=== PATIENT | male | born 1955 | race Caucasian/White ===

== ENCOUNTER 2017-04-07 02:01 | Emergency (ER) | payer OTHER ==
[~2017-04-07] VITALS: Ht 182.9 cm; Wt 80.0 kg
[~2017-04-07 02:01] MED LIST: ASPI-621 PO; NICO-486 TD; PHEN100C PO; PRAS10TA4 PO; PRAV20TA PO
[2017-04-07 02:02] VITALS: BP 124/81
[2017-04-07] MEDS ORDERED: DIPH,PERTUSS(ACELL),TET VAC/PF 0.5 ML IM-VACC ONE ×2 (02:29→02:30)
[2017-04-07] MEDS ORDERED: IBUPROFEN 200 MG TABLET ONE (03:20)
[2017-04-07] MEDS ORDERED: IBUPROFEN 200 MG TABLET PO ONE (03:30)
== END 2017-04-07 03:29 | disposition home or self-care (01) ==
LOC: ED 03:10
DX: S91.331A Puncture wound without foreign body, right foot, initial encounter (principal); E78.5 Hyperlipidemia, unspecified; I25.10 Atherosclerotic heart disease of native coronary artery without angina pectoris; Z95.5 Presence of coronary angioplasty implant and graft; W45.0XXA Nail entering through skin, initial encounter; Y93.89 Activity, other specified; Y92.89 Other specified places as the place of occurrence of the external cause; Y99.8 Other external cause status
CPT/HCPCS: 90471; 90715

== ENCOUNTER 2017-05-27 22:07 | Emergency (ER) | payer OTHER ==
[~2017-05-27] VITALS: Ht 182.9 cm; Wt 78.2 kg
[2017-05-27 22:18] VITALS: BP 114/78
== END 2017-05-27 22:54 | disposition home or self-care (01) ==
LOC: ED 22:46
DX: M79.671 Pain in right foot (principal); Z48.01 Encounter for change or removal of surgical wound dressing; F17.200 Nicotine dependence, unspecified, uncomplicated; E78.5 Hyperlipidemia, unspecified
CPT/HCPCS: 99282

== ENCOUNTER 2018-03-19 13:02 | Emergency (ER) | payer SELFPAY ==
[~2018-03-19] VITALS: Ht 182.9 cm; Wt 78.7 kg
[2018-03-19 13:08] VITALS: BP 117/73
[2018-03-19] MEDS ORDERED: IBUPROFEN 200 MG TABLET ONE (13:55)
[2018-03-19] MEDS ORDERED: IBUPROFEN 200 MG TABLET PO ONE (14:00)
== END 2018-03-19 15:01 | disposition home or self-care (01) ==
LOC: ED 13:30
DX: S86.112A Strain of other muscle(s) and tendon(s) of posterior muscle group at lower leg level, left leg, initial encounter (principal); I25.2 Old myocardial infarction; I25.10 Atherosclerotic heart disease of native coronary artery without angina pectoris; E78.5 Hyperlipidemia, unspecified; X58.XXXA Exposure to other specified factors, initial encounter; Y93.89 Activity, other specified; Y92.89 Other specified places as the place of occurrence of the external cause; Y99.8 Other external cause status
CPT/HCPCS: 99284

== ENCOUNTER 2018-04-23 12:51 | Inpatient (IN) | payer MEDICARE, OTHER ==
[~2018-04-23] VITALS: Ht 180.3 cm; Wt 79.6 kg
[2018-04-23 13:35] LABS: BASOPHILS # (AUTO) 0.04 x10^3/uL (0-0.1); BASOPHILS % (AUTO) 1 % (0-1); EOSINOPHILS # (AUTO) 0.14 x10^3/uL (0-0.4); EOSINOPHILS % (AUTO) 2 % (1-7); LYMPHOCYTES # (AUTO) 2.71 x10^3/uL (1-3.4); LYMPHOCYTES % (AUTO) 44 % (22-44); MD NO; MEAN CORPUSCULAR HEMOGLOBIN 34.7 pg (27.5-34.5); MEAN CORPUSCULAR HGB CONC 34.1 g/dL (33.2-36.2); MEAN CORPUSCULAR VOLUME 101.7 fL (81-97); MEAN PLATELET VOLUME 7.8 fL (7.4-10.4); MONOCYTES # (AUTO) 0.26 x10^3/uL (0.2-0.8); MONOCYTES % (AUTO) 4 % (2-9); NEUTROPHILS # (AUTO) 2.99 x10^3/uL (1.8-6.8); NEUTROPHILS % (AUTO) 49 % (42-75); PLATELET COUNT 251 x10^3/uL (130-400); RED BLOOD COUNT 4.01 x10^6/uL (4.38-5.82); RED CELL DISTRIBUTION WIDTH 13.2 % (9.4-14.8)
[2018-04-23 13:48] LABS: ALANINE AMINOTRANSFERASE 16 U/L (12-78); ALBUMIN 3.3 g/dL (3.4-5.0); ANION GAP 8 mmol/L (5-15); CALCIUM 8.2 mg/dL (8.5-10.1); CHLORIDE 110 mmol/L (98-107); CREATININE 0.75 mg/dL (0.7-1.3)
[2018-04-23 13:50] LABS: ALKALINE PHOSPHATASE 140 U/L (45-117); BILIRUBIN,TOTAL 0.3 mg/dL (0.2-1.0); TOTAL PROTEIN 6.8 g/dL (6.4-8.2)
[2018-04-23 14:19] LABS: INTERNATIONAL NORMALIZED RATIO 1.01 (0.93-1.1); PROTHROMBIN TIME 10.4 Seconds (9.6-11.5)
[2018-04-23] MEDS ORDERED: HEPARIN 5,000 UNITS/ML, 1ML IV ONE (17:00)
[2018-04-23] MEDS ORDERED: HEPARIN 25,000 UNITS/500ML PMX 500 ML IV PRN (17:00)
[2018-04-23] MEDS ORDERED: HEPARIN 5,000 UNITS/ML, 1ML IV PRN (17:00)
[2018-04-23] MEDS ORDERED: ONDANSETRON 2MG/ML, 2ML IVPush PRN (17:30)
[2018-04-23] MEDS ORDERED: BISACODYL 10 MG SUPP PR PRN (17:30)
[2018-04-23] MEDS ORDERED: MORPHINE SULFATE 4 MG/ML, 1ML IVPush PRN (17:30)
[2018-04-23] MEDS ORDERED: DOCUSATE 100 MG CAPSULE PO PRN (17:30)
[2018-04-23] MEDS ORDERED: POLYETHYLENE GLYCOL 17 GM PACKET PO PRN (17:30)
[2018-04-23] MEDS ORDERED: ENALAPRILAT 1.25 MG/ML, 2ML IVPush PRN (17:30)
[2018-04-23] MEDS: NS + 20MEQ KCL 1,000 ML IV SCH (20:51)
[2018-04-23 22:38] VITALS: BP 144/79
[2018-04-24 00:34] VITALS: BP 138/76
[2018-04-24 05:38] LABS: CHLORIDE 112 mmol/L (98-107)
[2018-04-24 05:42] LABS: BASOPHILS # (AUTO) 0.04 x10^3/uL (0-0.1); BASOPHILS % (AUTO) 1 % (0-1); EOSINOPHILS # (AUTO) 0.26 x10^3/uL (0-0.4); EOSINOPHILS % (AUTO) 4 % (1-7); LYMPHOCYTES # (AUTO) 3.43 x10^3/uL (1-3.4); LYMPHOCYTES % (AUTO) 52 % (22-44); MD NO; MEAN CORPUSCULAR HEMOGLOBIN 34.8 pg (27.5-34.5); MEAN CORPUSCULAR HGB CONC 34.3 g/dL (33.2-36.2); MEAN CORPUSCULAR VOLUME 101.4 fL (81-97); MEAN PLATELET VOLUME 8.6 fL (7.4-10.4); MONOCYTES # (AUTO) 0.35 x10^3/uL (0.2-0.8); MONOCYTES % (AUTO) 5 % (2-9); NEUTROPHILS # (AUTO) 2.54 x10^3/uL (1.8-6.8); NEUTROPHILS % (AUTO) 38 % (42-75); PLATELET COUNT 223 x10^3/uL (130-400); RED BLOOD COUNT 3.82 x10^6/uL (4.38-5.82); RED CELL DISTRIBUTION WIDTH 13.3 % (9.4-14.8)
[2018-04-24 06:04] LABS: ALANINE AMINOTRANSFERASE 15 U/L (12-78); ALBUMIN 3.1 g/dL (3.4-5.0); ALKALINE PHOSPHATASE 125 U/L (45-117); ANION GAP 9 mmol/L (5-15); BILIRUBIN,TOTAL 0.2 mg/dL (0.2-1.0); CALCIUM 8.3 mg/dL (8.5-10.1); CREATININE 0.61 mg/dL (0.7-1.3); TOTAL PROTEIN 6.3 g/dL (6.4-8.2)
[2018-04-24 07:08] VITALS: BP 108/72
[2018-04-24] MEDS: PHENYTOIN 100 MG CAPSULE PO SCH (09:00)
[2018-04-24] MEDS ORDERED: LIDOCAINE-MPF 1%, 5ML ONE (09:38)
[2018-04-24] MEDS ORDERED: FENTANYL PF 100 MCG/2ML ONE (09:39)
[2018-04-24] MEDS ORDERED: FLUMAZENIL 0.1 MG/1 ML, 5ML ONE (09:39)
[2018-04-24] MEDS ORDERED: MIDAZOLAM 1 MG/ML, 5ML ONE (09:39)
[2018-04-24] MEDS ORDERED: HEPARIN 1,000 UNITS/ML, 10ML ONE (09:40)
[2018-04-24] MEDS ORDERED: NALOXONE 1 MG/ML, 2ML ONE (09:40)
[2018-04-24] MEDS ORDERED: PROTAMINE SULFATE 10 MG/ML, 25ML ONE (09:40)
[2018-04-24] MEDS ORDERED: NITROGLYCERIN 5 MG/ML, 10ML ONE (09:40)
[2018-04-24] MEDS: NS + 20MEQ KCL 1,000 ML IV SCH ×2 (10:00→23:10)
[2018-04-24] MEDS ORDERED: VISIPAQUE 270 MG/ML, 150ML BOTTLE ONE (11:58)
[2018-04-24] MEDS ORDERED: CLOPIDOGREL 300 MG TABLET PO ONE (12:00)
[2018-04-24 12:35] VITALS: BP 127/81
[2018-04-24] MEDS: ASPIRIN 81 MG TABLET EC PO SCH (12:43)
[2018-04-24] MEDS: SODIUM CHLORIDE 0.9% 1,000 ML IV SCH (12:43)
[2018-04-24] MEDS: NICOTINE 21 MG/24 HR PATCH.TD24 TD SCH (17:42)
[2018-04-24 21:13] VITALS: BP 118/79
[2018-04-25] MEDS: ACETAMINOPHEN 325 MG TABLET PO PRN (00:44)
[2018-04-25] MEDS: SODIUM CHLORIDE 0.9% 1,000 ML IV SCH ×2 (01:07→14:27)
[2018-04-25 02:38] VITALS: BP 117/80
[2018-04-25 05:24] LABS: BASOPHILS # (AUTO) 0.03 x10^3/uL (0-0.1); BASOPHILS % (AUTO) 0 % (0-1); EOSINOPHILS # (AUTO) 0.17 x10^3/uL (0-0.4); EOSINOPHILS % (AUTO) 2 % (1-7); LYMPHOCYTES # (AUTO) 3.12 x10^3/uL (1-3.4); LYMPHOCYTES % (AUTO) 38 % (22-44); MD NO; MEAN CORPUSCULAR HEMOGLOBIN 34.4 pg (27.5-34.5); MEAN CORPUSCULAR HGB CONC 33.8 g/dL (33.2-36.2); MEAN CORPUSCULAR VOLUME 101.8 fL (81-97); MEAN PLATELET VOLUME 8.2 fL (7.4-10.4); MONOCYTES # (AUTO) 0.49 x10^3/uL (0.2-0.8); MONOCYTES % (AUTO) 6 % (2-9); NEUTROPHILS # (AUTO) 4.46 x10^3/uL (1.8-6.8); NEUTROPHILS % (AUTO) 54 % (42-75); PLATELET COUNT 213 x10^3/uL (130-400); RED BLOOD COUNT 3.72 x10^6/uL (4.38-5.82); RED CELL DISTRIBUTION WIDTH 13.4 % (9.4-14.8)
[2018-04-25 05:33] LABS: ANION GAP 5 mmol/L (5-15); CALCIUM 8.2 mg/dL (8.5-10.1); CHLORIDE 113 mmol/L (98-107); CREATININE 0.76 mg/dL (0.7-1.3)
[2018-04-25] MEDS: ASPIRIN 81 MG TABLET EC PO SCH (05:34)
[2018-04-25 07:34] VITALS: BP 120/79
[2018-04-25] MEDS: NICOTINE 21 MG/24 HR PATCH.TD24 TD SCH (08:42)
[2018-04-25] MEDS: PHENYTOIN 100 MG CAPSULE PO SCH (08:42)
[2018-04-25] MEDS: CLOPIDOGREL 75 MG TABLET PO SCH (08:43)
[2018-04-25] MEDS ORDERED: CLOP75TA PO (10:31)
[2018-04-25] MEDS: NS + 20MEQ KCL 1,000 ML IV SCH (12:40)
[2018-04-25 13:30] VITALS: BP 110/69
[2018-04-25 19:01] VITALS: BP 121/70
[2018-04-26] MEDS: NS + 20MEQ KCL 1,000 ML IV SCH ×2 (01:19→16:02)
[2018-04-26 01:20] VITALS: BP 109/71
[2018-04-26] MEDS: SODIUM CHLORIDE 0.9% 1,000 ML IV SCH ×2 (03:39→15:51)
[2018-04-26] MEDS: ASPIRIN 81 MG TABLET EC PO SCH (05:55)
[2018-04-26 06:53] VITALS: BP 124/84
[2018-04-26] MEDS ORDERED: LIDOCAINE-MPF 1%, 5ML ONE (07:53)
[2018-04-26 08:22] LABS: BASOPHILS # (AUTO) 0.04 x10^3/uL (0-0.1); BASOPHILS % (AUTO) 1 % (0-1); EOSINOPHILS # (AUTO) 0.23 x10^3/uL (0-0.4); EOSINOPHILS % (AUTO) 3 % (1-7); LYMPHOCYTES # (AUTO) 2.42 x10^3/uL (1-3.4); LYMPHOCYTES % (AUTO) 31 % (22-44); MD NO; MEAN CORPUSCULAR HEMOGLOBIN 33.8 pg (27.5-34.5); MEAN CORPUSCULAR HGB CONC 33.9 g/dL (33.2-36.2); MEAN CORPUSCULAR VOLUME 99.6 fL (81-97); MEAN PLATELET VOLUME 7.5 fL (7.4-10.4); MONOCYTES # (AUTO) 0.41 x10^3/uL (0.2-0.8); MONOCYTES % (AUTO) 5 % (2-9); NEUTROPHILS # (AUTO) 4.65 x10^3/uL (1.8-6.8); NEUTROPHILS % (AUTO) 60 % (42-75); PLATELET COUNT 219 x10^3/uL (130-400); RED CELL DISTRIBUTION WIDTH 13.4 % (9.4-14.8)
[2018-04-26 08:40] LABS: ANION GAP 5 mmol/L (5-15); CALCIUM 8.6 mg/dL (8.5-10.1); CHLORIDE 111 mmol/L (98-107); CREATININE 0.71 mg/dL (0.7-1.3)
[2018-04-26] MEDS ORDERED: FLUMAZENIL 0.1 MG/1 ML, 5ML ONE (10:23)
[2018-04-26] MEDS ORDERED: NITROGLYCERIN 5 MG/ML, 10ML ONE (10:23)
[2018-04-26] MEDS ORDERED: MIDAZOLAM 1 MG/ML, 5ML ONE (10:23)
[2018-04-26] MEDS ORDERED: FENTANYL PF 100 MCG/2ML ONE ×2 (10:23)
[2018-04-26] MEDS ORDERED: NALOXONE 1 MG/ML, 2ML ONE (10:24)
[2018-04-26] MEDS ORDERED: PROTAMINE SULFATE 10 MG/ML, 25ML ONE (10:24)
[2018-04-26] MEDS ORDERED: HEPARIN 1,000 UNITS/ML, 10ML ONE (10:24)
[2018-04-26] MEDS: NICOTINE 21 MG/24 HR PATCH.TD24 TD SCH (10:47)
[2018-04-26] MEDS: PHENYTOIN 100 MG CAPSULE PO SCH (10:47)
[2018-04-26] MEDS: CLOPIDOGREL 75 MG TABLET PO SCH (10:47)
[2018-04-26 13:19] VITALS: BP 114/67
[2018-04-26 18:45] VITALS: BP 113/71
[2018-04-27 02:03] VITALS: BP 122/79
[2018-04-27] MEDS: NS + 20MEQ KCL 1,000 ML IV SCH ×2 (05:06→21:28)
[2018-04-27] MEDS: ASPIRIN 81 MG TABLET EC PO SCH (05:06)
[2018-04-27 05:13] LABS: BASOPHILS # (AUTO) 0.04 x10^3/uL (0-0.1); BASOPHILS % (AUTO) 0 % (0-1); EOSINOPHILS # (AUTO) 0.25 x10^3/uL (0-0.4); EOSINOPHILS % (AUTO) 3 % (1-7); LYMPHOCYTES # (AUTO) 3.03 x10^3/uL (1-3.4); LYMPHOCYTES % (AUTO) 37 % (22-44); MD NO; MEAN CORPUSCULAR HEMOGLOBIN 34.8 pg (27.5-34.5); MEAN CORPUSCULAR HGB CONC 34.2 g/dL (33.2-36.2); MEAN CORPUSCULAR VOLUME 101.7 fL (81-97); MEAN PLATELET VOLUME 8.1 fL (7.4-10.4); MONOCYTES # (AUTO) 0.55 x10^3/uL (0.2-0.8); MONOCYTES % (AUTO) 7 % (2-9); NEUTROPHILS # (AUTO) 4.27 x10^3/uL (1.8-6.8); NEUTROPHILS % (AUTO) 53 % (42-75); PLATELET COUNT 217 x10^3/uL (130-400); RED BLOOD COUNT 3.91 x10^6/uL (4.38-5.82); RED CELL DISTRIBUTION WIDTH 13.3 % (9.4-14.8)
[2018-04-27 05:21] LABS: ANION GAP 5 mmol/L (5-15); CALCIUM 8.3 mg/dL (8.5-10.1); CHLORIDE 110 mmol/L (98-107); CREATININE 0.73 mg/dL (0.7-1.3)
[2018-04-27] MEDS: SODIUM CHLORIDE 0.9% 1,000 ML IV SCH ×2 (06:27→19:47)
[2018-04-27 07:12] VITALS: BP 111/72
[2018-04-27] MEDS: PHENYTOIN 100 MG CAPSULE PO SCH (10:06)
[2018-04-27] MEDS: CLOPIDOGREL 75 MG TABLET PO SCH (10:07)
[2018-04-27] MEDS: NICOTINE 21 MG/24 HR PATCH.TD24 TD SCH (10:07)
[2018-04-27 12:57] VITALS: BP 118/76
[2018-04-27 19:10] VITALS: BP 105/69
[2018-04-28 01:22] VITALS: BP 132/78
[2018-04-28 05:06] LABS: BASOPHILS # (AUTO) 0.04 x10^3/uL (0-0.1); BASOPHILS % (AUTO) 1 % (0-1); EOSINOPHILS % (AUTO) 4 % (1-7); LYMPHOCYTES # (AUTO) 2.92 x10^3/uL (1-3.4); LYMPHOCYTES % (AUTO) 39 % (22-44); MD NO; MEAN CORPUSCULAR HEMOGLOBIN 34.4 pg (27.5-34.5); MEAN CORPUSCULAR HGB CONC 33.7 g/dL (33.2-36.2); MEAN PLATELET VOLUME 7.9 fL (7.4-10.4); MONOCYTES # (AUTO) 0.53 x10^3/uL (0.2-0.8); MONOCYTES % (AUTO) 7 % (2-9); NEUTROPHILS # (AUTO) 3.66 x10^3/uL (1.8-6.8); NEUTROPHILS % (AUTO) 49 % (42-75); PLATELET COUNT 223 x10^3/uL (130-400); RED BLOOD COUNT 4.01 x10^6/uL (4.38-5.82); RED CELL DISTRIBUTION WIDTH 13.2 % (9.4-14.8)
[2018-04-28 05:16] LABS: ANION GAP 6 mmol/L (5-15); CALCIUM 8.3 mg/dL (8.5-10.1); CHLORIDE 110 mmol/L (98-107); CREATININE 0.75 mg/dL (0.7-1.3)
[2018-04-28 07:10] VITALS: BP 115/78
[2018-04-28] MEDS: ASPIRIN 81 MG TABLET EC PO SCH (08:00)
[2018-04-28] MEDS: CLOPIDOGREL 75 MG TABLET PO SCH (08:43)
[2018-04-28] MEDS: SODIUM CHLORIDE 0.9% 1,000 ML IV SCH (09:07)
[2018-04-28] MEDS: PHENYTOIN 100 MG CAPSULE PO SCH ×2 (09:43→09:57)
[2018-04-28] MEDS: NICOTINE 21 MG/24 HR PATCH.TD24 TD SCH (09:57)
[2018-04-28] MEDS: NS + 20MEQ KCL 1,000 ML IV SCH ×2 (09:58→23:19)
[2018-04-28 12:50] VITALS: BP 108/70
[2018-04-28] MEDS ORDERED: HEPARIN 1,000 UNITS/ML, 10ML ONE (15:14)
[2018-04-28] MEDS ORDERED: THROMBIN 20,000 UNIT VIAL TP ONE (15:14)
[2018-04-28] MEDS ORDERED: PROTAMINE SULFATE 10 MG/ML, 5ML ONE (15:14)
[2018-04-28] MEDS ORDERED: FENTANYL PF 250 MCG/5ML ONE (16:20)
[2018-04-28] MEDS ORDERED: MIDAZOLAM 1 MG/ML, 2ML ONE (16:20)
[2018-04-28] MEDS ORDERED: LIDOCAINE-MPF 2% ,5ML ONE (16:21)
[2018-04-28] MEDS ORDERED: PROPOFOL 10 MG/ML, 20ML ONE (16:21)
[2018-04-28] MEDS ORDERED: CEFAZOLIN 1,000 MG ONE ×2 (16:22)
[2018-04-28] MEDS ORDERED: DEXAMETHASONE 4 MG/ML, 1ML ONE ×2 (16:23)
[2018-04-28] MEDS ORDERED: PHENYLEPHRINE 10 MG/ML ONE (16:24)
[2018-04-28] MEDS ORDERED: REMIFENTANIL 1 MG ONE ×2 (16:38)
[2018-04-28] MEDS ORDERED: BUPIVACAINE/PF-EPI 0.5% 1:200K ONE (16:43)
[2018-04-28] MEDS ORDERED: ALBUTEROL/IPRATROPIUM 2.5MG/0.5MG, 3 ML NPPB PRN (17:00)
[2018-04-28] MEDS ORDERED: hydrALAzine 20 MG/ML, 1ML IV PRN (17:00)
[2018-04-28] MEDS ORDERED: PROMETHAZINE 25 MG/ML, 1ML IV PRN (17:00)
[2018-04-28] MEDS ORDERED: ACETAMINOPHEN 325 MG TABLET PO PRN (17:00)
[2018-04-28] MEDS ORDERED: HALOPERIDOL 5 MG/ML IV PRN (17:00)
[2018-04-28] MEDS ORDERED: MEPERIDINE/PF 25MG/0.5ML IVPush PRN (17:00)
[2018-04-28] MEDS ORDERED: LORazepam 2 MG/ML, 1ML IVPush PRN (17:00)
[2018-04-28] MEDS ORDERED: LABETALOL 5MG/ML, 20ML IV PRN (17:00)
[2018-04-28] MEDS ORDERED: OXYcodone 5 MG/5 ML ORAL.SOL UDC PO PRN (17:00)
[2018-04-28] MEDS ORDERED: VISIPAQUE 270 MG/ML, 50ML BOTTLE ONE (19:41)
[2018-04-28] MEDS ORDERED: ONDANSETRON 2MG/ML, 2ML ONE ×2 (19:54)
[2018-04-28] MEDS ORDERED: OXYcodone 5 MG/5 ML ORAL.SOL UDC ONE (20:12)
[2018-04-28] MEDS ORDERED: ACETAMINOPHEN 650 MG/20.3 ML UDC ONE (20:12)
[2018-04-28] MEDS ORDERED: FENTANYL PF 100 MCG/2ML ONE ×2 (20:12→20:22)
[2018-04-28] MEDS: FENTANYL PF 100 MCG/2ML IV PRN ×4 (20:13→20:38)
[2018-04-28] MEDS ORDERED: HYDROmorphone 2 MG/ML, 1ML ONE (20:17)
[2018-04-28] MEDS: HYDROmorphone 1 MG/ML, 1ML IV PRN ×4 (20:21→21:26)
[2018-04-29 00:11] VITALS: BP 126/73
[2018-04-29] MEDS: ASPIRIN 81 MG TABLET EC PO SCH (05:40)
[2018-04-29 05:51] LABS: BASOPHILS # (AUTO) 0.03 x10^3/uL (0-0.1); BASOPHILS % (AUTO) 0 % (0-1); EOSINOPHILS # (AUTO) 0.01 x10^3/uL (0-0.4); EOSINOPHILS % (AUTO) 0 % (1-7); LYMPHOCYTES # (AUTO) 1.14 x10^3/uL (1-3.4); LYMPHOCYTES % (AUTO) 12 % (22-44); MD NO; MEAN CORPUSCULAR HEMOGLOBIN 34.4 pg (27.5-34.5); MEAN CORPUSCULAR HGB CONC 34.1 g/dL (33.2-36.2); MEAN CORPUSCULAR VOLUME 100.9 fL (81-97); MEAN PLATELET VOLUME 8.1 fL (7.4-10.4); MONOCYTES # (AUTO) 0.62 x10^3/uL (0.2-0.8); MONOCYTES % (AUTO) 7 % (2-9); NEUTROPHILS # (AUTO) 7.56 x10^3/uL (1.8-6.8); NEUTROPHILS % (AUTO) 81 % (42-75); PLATELET COUNT 213 x10^3/uL (130-400); RED BLOOD COUNT 3.73 x10^6/uL (4.38-5.82); RED CELL DISTRIBUTION WIDTH 13.1 % (9.4-14.8)
[2018-04-29 06:01] LABS: ANION GAP 7 mmol/L (5-15); CALCIUM 8.7 mg/dL (8.5-10.1); CHLORIDE 106 mmol/L (98-107); CREATININE 1.23 mg/dL (0.7-1.3)
[2018-04-29 07:59] VITALS: BP 112/74
[2018-04-29] MEDS: NICOTINE 21 MG/24 HR PATCH.TD24 TD SCH (09:59)
[2018-04-29] MEDS: CLOPIDOGREL 75 MG TABLET PO SCH (09:59)
[2018-04-29] MEDS: ACETAMINOPHEN 325 MG TABLET PO PRN (11:54)
[2018-04-29] MEDS: PHENYTOIN 100 MG CAPSULE PO SCH (11:55)
[2018-04-29] MEDS: SODIUM CHLORIDE 0.9% 1,000 ML IV SCH ×2 (12:39→19:22)
[2018-04-29] MEDS: NS + 20MEQ KCL 1,000 ML IV SCH (12:39)
[2018-04-29 13:30] VITALS: BP 110/64
[2018-04-29 20:19] VITALS: BP 127/70
[2018-04-30] MEDS: SODIUM CHLORIDE 0.9% 1,000 ML IV SCH ×2 (01:34→11:47)
[2018-04-30] MEDS: NS + 20MEQ KCL 1,000 ML IV SCH (01:34)
[2018-04-30 01:44] VITALS: BP 111/65
[2018-04-30] MEDS: ASPIRIN 81 MG TABLET EC PO SCH (05:50)
[2018-04-30 06:50] VITALS: BP 108/70
[2018-04-30] MEDS: NICOTINE 21 MG/24 HR PATCH.TD24 TD SCH (09:33)
[2018-04-30] MEDS: CLOPIDOGREL 75 MG TABLET PO SCH (09:33)
[2018-04-30] MEDS: PHENYTOIN 100 MG CAPSULE PO SCH (09:34)
[2018-04-30 12:33] VITALS: BP 104/52
[2018-04-30 13:32] LABS: BASOPHILS # (AUTO) 0.04 x10^3/uL (0-0.1); BASOPHILS % (AUTO) 1 % (0-1); EOSINOPHILS # (AUTO) 0.07 x10^3/uL (0-0.4); EOSINOPHILS % (AUTO) 1 % (1-7); LYMPHOCYTES % (AUTO) 36 % (22-44); MD NO; MEAN CORPUSCULAR HEMOGLOBIN 33.7 pg (27.5-34.5); MEAN CORPUSCULAR HGB CONC 33.7 g/dL (33.2-36.2); MONOCYTES # (AUTO) 0.48 x10^3/uL (0.2-0.8); MONOCYTES % (AUTO) 9 % (2-9); NEUTROPHILS # (AUTO) 2.73 x10^3/uL (1.8-6.8); NEUTROPHILS % (AUTO) 52 % (42-75); PLATELET COUNT 186 x10^3/uL (130-400); RED CELL DISTRIBUTION WIDTH 13.4 % (9.4-14.8)
[2018-04-30 15:48] LABS: MICROSCOPIC NOT IND
[2018-04-30 16:01] LABS: CULTURE INDICATED? NO
[2018-04-30 17:23] VITALS: BP 105/69
[2018-04-30] MEDS: METOPROLOL TARTRATE 25 MG TABLET PO SCH (17:24)
[2018-04-30 18:57] VITALS: BP 109/77
[2018-04-30] MEDS: ATORVASTATIN 40 MG TABLET PO SCH (21:13)
[2018-05-01] MEDS: SODIUM CHLORIDE 0.9% 1,000 ML IV SCH ×2 (00:30→14:25)
[2018-05-01 01:00] VITALS: BP 106/69
[2018-05-01] MEDS: ASPIRIN 81 MG TABLET EC PO SCH (05:50)
[2018-05-01] MEDS: METOPROLOL TARTRATE 25 MG TABLET PO SCH ×2 (05:51→17:12)
[2018-05-01 07:15] VITALS: BP 101/68
[2018-05-01] MEDS: PHENYTOIN 100 MG CAPSULE PO SCH (08:50)
[2018-05-01] MEDS: NICOTINE 21 MG/24 HR PATCH.TD24 TD SCH (08:50)
[2018-05-01] MEDS: ACETAMINOPHEN 325 MG TABLET PO PRN (08:50)
[2018-05-01] MEDS: CLOPIDOGREL 75 MG TABLET PO SCH (08:50)
[2018-05-01 12:54] VITALS: BP 107/65
[2018-05-01] MEDS: ENOXAPARIN 40 MG/0.4 ML SQ SCH (14:25)
[2018-05-01 19:47] VITALS: BP 105/71
[2018-05-01] MEDS: ATORVASTATIN 40 MG TABLET PO SCH (21:02)
[2018-05-02 00:38] VITALS: BP 112/76
[2018-05-02] MEDS: SODIUM CHLORIDE 0.9% 1,000 ML IV SCH ×2 (03:47→17:07)
[2018-05-02] MEDS: METOPROLOL TARTRATE 25 MG TABLET PO SCH ×2 (06:16→18:21)
[2018-05-02] MEDS: ASPIRIN 81 MG TABLET EC PO SCH (06:17)
[2018-05-02 07:14] VITALS: BP 110/74
[2018-05-02] MEDS: PHENYTOIN 100 MG CAPSULE PO SCH (09:50)
[2018-05-02] MEDS: CLOPIDOGREL 75 MG TABLET PO SCH (09:50)
[2018-05-02] MEDS: NICOTINE 21 MG/24 HR PATCH.TD24 TD SCH (09:50)
[2018-05-02 13:26] VITALS: BP 101/67
[2018-05-02] MEDS: ENOXAPARIN 40 MG/0.4 ML SQ SCH (14:12)
[2018-05-02 19:48] VITALS: BP 105/70
[2018-05-02] MEDS: ATORVASTATIN 40 MG TABLET PO SCH (20:21)
[2018-05-03 01:48] VITALS: BP 99/61
[2018-05-03] MEDS: METOPROLOL TARTRATE 25 MG TABLET PO SCH ×2 (06:06→17:25)
[2018-05-03] MEDS: ASPIRIN 81 MG TABLET EC PO SCH (06:06)
[2018-05-03] MEDS: SODIUM CHLORIDE 0.9% 1,000 ML IV SCH (06:07)
[2018-05-03 07:00] VITALS: BP 107/70
[2018-05-03] MEDS: NICOTINE 21 MG/24 HR PATCH.TD24 TD SCH (08:58)
[2018-05-03] MEDS: CLOPIDOGREL 75 MG TABLET PO SCH (08:59)
[2018-05-03] MEDS: PHENYTOIN 100 MG CAPSULE PO SCH (08:59)
[2018-05-03 13:12] VITALS: BP 106/71
[2018-05-03] MEDS: ENOXAPARIN 40 MG/0.4 ML SQ SCH (15:15)
[2018-05-03 18:55] VITALS: BP 109/74
[2018-05-03] MEDS: ATORVASTATIN 40 MG TABLET PO SCH (21:05)
[2018-05-04 03:33] VITALS: BP 108/78
[2018-05-04] MEDS: ASPIRIN 81 MG TABLET EC PO SCH (06:27)
[2018-05-04] MEDS: METOPROLOL TARTRATE 25 MG TABLET PO SCH ×2 (06:29→17:14)
[2018-05-04 07:27] VITALS: BP 99/67
[2018-05-04] MEDS: PHENYTOIN 100 MG CAPSULE PO SCH (09:02)
[2018-05-04] MEDS: CLOPIDOGREL 75 MG TABLET PO SCH (09:02)
[2018-05-04] MEDS: NICOTINE 21 MG/24 HR PATCH.TD24 TD SCH (09:02)
[2018-05-04 12:57] VITALS: BP 109/70
[2018-05-04] MEDS ORDERED: ATOR40TA78 PO (14:27)
[2018-05-04] MEDS ORDERED: TRAM50TA2 PO (14:27)
[2018-05-04] MEDS ORDERED: GABA-826 PO (14:27)
[2018-05-04] MEDS ORDERED: ACET325T14 PO (14:27)
[2018-05-04] MEDS ORDERED: ASPI-621 PO (14:27)
[2018-05-04] MEDS ORDERED: METO25TA35 PO (14:27)
[2018-05-04] MEDS: ENOXAPARIN 40 MG/0.4 ML SQ SCH (14:41)
[2018-05-04 17:00] VITALS: BP 110/72
[2018-05-04] MEDS: GABAPENTIN 100 MG CAPSULE PO SCH ×2 (17:14→20:46)
[2018-05-04 19:10] VITALS: BP 129/89
[2018-05-04] MEDS: ATORVASTATIN 40 MG TABLET PO SCH ×2 (20:46→20:48)
== END 2018-05-04 23:29 | disposition home or self-care (01) | DRG 271 ==
LOC: ED 14:56 → EDIP 16:33 → 3NE 18:31 → 4NOR 04-28 21:30
PROVIDERS: ADMIT Hospitalist; ATTEND Hospitalist
PROC: 04CN3ZZ Extirpation of Matter from Left Popliteal Artery, Percutaneous Approach (ICD-10-PCS; principal; 2018-04-24)
PROC: 047N3DZ Dilation of Left Popliteal Artery with Intraluminal Device, Percutaneous Approach (ICD-10-PCS; 2018-04-24)
PROC: B41D1ZZ Fluoroscopy of Aorta and Bilateral Lower Extremity Arteries using Low Osmolar Contrast (ICD-10-PCS; 2018-04-24)
PROC: 041N09L Bypass Left Popliteal Artery to Popliteal Artery with Autologous Venous Tissue, Open Approach (ICD-10-PCS; 2018-04-28)
PROC: 06BQ0ZZ Excision of Left Saphenous Vein, Open Approach (ICD-10-PCS; 2018-04-28)
PROC: 07BG0ZX Excision of Left Lower Extremity Lymphatic, Open Approach, Diagnostic (ICD-10-PCS; 2018-04-28)
DX: I70.223 Atherosclerosis of native arteries of extremities with rest pain, bilateral legs (principal); E44.1 Mild protein-calorie malnutrition; T82.898A Other specified complication of vascular prosthetic devices, implants and grafts, initial encounter; I70.92 Chronic total occlusion of artery of the extremities; R73.9 Hyperglycemia, unspecified; I25.10 Atherosclerotic heart disease of native coronary artery without angina pectoris; F17.210 Nicotine dependence, cigarettes, uncomplicated; E78.5 Hyperlipidemia, unspecified; G40.909 Epilepsy, unspecified, not intractable, without status epilepticus; G62.9 Polyneuropathy, unspecified; I25.2 Old myocardial infarction; Z59.0 Homelessness; Z91.14 Patient's other noncompliance with medication regimen; Z95.5 Presence of coronary angioplasty implant and graft; Y83.8 Other surgical procedures as the cause of abnormal reaction of the patient, or of later complication, without mention of misadventure at the time of the procedure; Y92.89 Other specified places as the place of occurrence of the external cause; Z68.24 Body mass index [BMI] 24.0-24.9, adult
CPT/HCPCS: 36415; 37227; 71045; 75630; 75710; 76937; 80048; 80053; 80185; 81003; 85025; 85520; 85610; 85730; 88305; 93005; 93922; 93925; 93926; 93970; 99156; 99157; 99285; C1725; C1729; G0378; J0690; J1100; J1170; J1644; J1650; J2250; J2405; J2704; J2720; J3010; J3480; J3490; Q9966; C1714; C1751; C1757; C1760; C1769; C1876; C1884; C1894; J2310; J2370; J7030

== ENCOUNTER 2018-05-30 21:50 | Emergency (ER) | payer MEDICARE ==
[~2018-05-30] VITALS: Ht 180.3 cm; Wt 80.9 kg
[~2018-05-30 21:50] MED LIST changes: +ACET325T14 PO; +ATOR40TA78 PO; +CLOP75TA PO; +GABA-826 PO; +METO25TA35 PO; +TRAM50TA2 PO
[2018-05-30] MEDS ORDERED: ACETAMINOPHEN 500 MG TABLET ONE (22:17)
[2018-05-30] MEDS ORDERED: ACETAMINOPHEN 500 MG TABLET PO ONE (22:30)
[2018-05-30 22:34] LABS: BASOPHILS # (AUTO) 0.04 x10^3/uL (0-0.1); BASOPHILS % (AUTO) 0 % (0-1); EOSINOPHILS # (AUTO) 0.28 x10^3/uL (0-0.4); EOSINOPHILS % (AUTO) 2 % (1-7); LYMPHOCYTES # (AUTO) 3.02 x10^3/uL (1-3.4); LYMPHOCYTES % (AUTO) 25 % (22-44); MD NO; MEAN CORPUSCULAR HEMOGLOBIN 33.5 pg (27.5-34.5); MEAN CORPUSCULAR HGB CONC 33.3 g/dL (33.2-36.2); MEAN CORPUSCULAR VOLUME 100.7 fL (81-97); MEAN PLATELET VOLUME 8.1 fL (7.4-10.4); MONOCYTES # (AUTO) 0.54 x10^3/uL (0.2-0.8); MONOCYTES % (AUTO) 4 % (2-9); NEUTROPHILS # (AUTO) 8.41 x10^3/uL (1.8-6.8); NEUTROPHILS % (AUTO) 69 % (42-75); PLATELET COUNT 258 x10^3/uL (130-400); RED BLOOD COUNT 3.96 x10^6/uL (4.38-5.82); RED CELL DISTRIBUTION WIDTH 13.2 % (9.4-14.8)
[2018-05-30 22:36] LABS: ALANINE AMINOTRANSFERASE 30 U/L (12-78); ALBUMIN 3.7 g/dL (3.4-5.0); ANION GAP 8 mmol/L (5-15); CALCIUM 8.3 mg/dL (8.5-10.1); CHLORIDE 111 mmol/L (98-107); CREATININE 0.85 mg/dL (0.7-1.3)
[2018-05-30 22:39] LABS: ALKALINE PHOSPHATASE 149 U/L (45-117); BILIRUBIN,TOTAL 0.2 mg/dL (0.2-1.0); TOTAL PROTEIN 7.5 g/dL (6.4-8.2)
[2018-05-30 22:48] LABS: MICROSCOPIC INDICATED
[2018-05-30] MEDS ORDERED: PHENAZOPYRIDINE 200 MG TABLET PO ONE (23:30)
[2018-05-31] MEDS ORDERED: PHENAZOPYRIDINE 200 MG TABLET ONE (00:04)
[2018-05-31 00:07] VITALS: BP 137/75
== END 2018-05-31 00:54 | disposition home or self-care (01) ==
LOC: ED 23:03
DX: R31.0 Gross hematuria (principal); E78.5 Hyperlipidemia, unspecified; I25.10 Atherosclerotic heart disease of native coronary artery without angina pectoris; I25.2 Old myocardial infarction; F17.200 Nicotine dependence, unspecified, uncomplicated; Z95.5 Presence of coronary angioplasty implant and graft
CPT/HCPCS: 36415; 80053; 81001; 85025; 99285

== ENCOUNTER 2018-06-02 15:55 | Inpatient (IN) | payer MEDICARE, OTHER ==
[~2018-06-02] VITALS: Ht 180.3 cm; Wt 76.3 kg
[2018-06-02] MEDS ORDERED: SODIUM CHLORIDE FLUSH 10ML SYR IVF ONE (16:30)
[2018-06-02 16:42] LABS: BASOPHILS # (AUTO) 0.03 x10^3/uL (0-0.1); BASOPHILS % (AUTO) 0 % (0-1); EOSINOPHILS # (AUTO) 0.14 x10^3/uL (0-0.4); EOSINOPHILS % (AUTO) 2 % (1-7); LYMPHOCYTES # (AUTO) 2.56 x10^3/uL (1-3.4); LYMPHOCYTES % (AUTO) 38 % (22-44); MD NO; MEAN CORPUSCULAR HEMOGLOBIN 33.1 pg (27.5-34.5); MEAN CORPUSCULAR HGB CONC 32.9 g/dL (33.2-36.2); MEAN CORPUSCULAR VOLUME 100.3 fL (81-97); MEAN PLATELET VOLUME 8.2 fL (7.4-10.4); MONOCYTES # (AUTO) 0.41 x10^3/uL (0.2-0.8); MONOCYTES % (AUTO) 6 % (2-9); NEUTROPHILS # (AUTO) 3.53 x10^3/uL (1.8-6.8); NEUTROPHILS % (AUTO) 53 % (42-75); PLATELET COUNT 263 x10^3/uL (130-400); RED BLOOD COUNT 3.93 x10^6/uL (4.38-5.82); RED CELL DISTRIBUTION WIDTH 13.4 % (9.4-14.8)
[2018-06-02 16:44] LABS: INTERNATIONAL NORMALIZED RATIO 1.07 (0.93-1.1); PROTHROMBIN TIME 11.3 Seconds (9.6-11.5)
[2018-06-02 16:45] LABS: ALANINE AMINOTRANSFERASE 25 U/L (12-78); ALBUMIN 3.5 g/dL (3.4-5.0); ANION GAP 9 mmol/L (5-15); CALCIUM 8.3 mg/dL (8.5-10.1); CHLORIDE 108 mmol/L (98-107); CREATININE 0.83 mg/dL (0.7-1.3)
[2018-06-02 16:48] LABS: ALKALINE PHOSPHATASE 154 U/L (45-117); BILIRUBIN,TOTAL 0.2 mg/dL (0.2-1.0); TOTAL PROTEIN 6.9 g/dL (6.4-8.2)
[2018-06-02] MEDS ORDERED: HEPARIN 5,000 UNITS/ML, 1ML IV ONE (17:00)
[2018-06-02] MEDS ORDERED: HEPARIN 5,000 UNITS/ML, 1ML ONE (17:12)
[2018-06-02] MEDS ORDERED: HEPARIN 25,000 UNITS/500ML PMX 500 ML ONE (18:32)
[2018-06-02] MEDS: HEPARIN 25,000 UNITS/500ML PMX 500 ML IV PRN (18:39)
[2018-06-02] MEDS ORDERED: ONDANSETRON ODT 4 MG PO PRN (19:00)
[2018-06-02] MEDS ORDERED: morphine SULFATE 10 MG/ML, 1ML IVPush PRN (19:00)
[2018-06-02] MEDS ORDERED: BISACODYL 10 MG SUPP PR PRN (19:00)
[2018-06-02] MEDS ORDERED: POLYETHYLENE GLYCOL 17 GM PACKET PO PRN (19:00)
[2018-06-02] MEDS ORDERED: ACETAMINOPHEN 325 MG TABLET PO PRN (19:00)
[2018-06-02 19:39] LABS: FOLATE LEVEL 17.2 ng/mL (3.1-17.5)
[2018-06-02 20:15] VITALS: BP 114/74
[2018-06-02] MEDS: GABAPENTIN 100 MG CAPSULE PO SCH (21:24)
[2018-06-02] MEDS: METOPROLOL TARTRATE 25 MG TABLET PO SCH (21:24)
[2018-06-02] MEDS: NICOTINE 7 MG/24 HR PATCH.TD24 TD SCH (21:24)
[2018-06-02] MEDS: ATORVASTATIN 40 MG TABLET PO SCH (21:25)
[2018-06-02] MEDS: SODIUM CHLORIDE FLUSH 10ML SYR IVF SCH (21:25)
[2018-06-03 01:23] VITALS: BP 105/68
[2018-06-03] MEDS: HEPARIN 5,000 UNITS/ML, 1ML IV PRN ×4 (01:47→22:42)
[2018-06-03 04:35] LABS: BASOPHILS # (AUTO) 0.04 x10^3/uL (0-0.1); BASOPHILS % (AUTO) 1 % (0-1); EOSINOPHILS % (AUTO) 3 % (1-7); LYMPHOCYTES % (AUTO) 54 % (22-44); MD NO; MEAN CORPUSCULAR HEMOGLOBIN 34.5 pg (27.5-34.5); MEAN CORPUSCULAR HGB CONC 34.2 g/dL (33.2-36.2); MEAN CORPUSCULAR VOLUME 100.7 fL (81-97); MEAN PLATELET VOLUME 8.3 fL (7.4-10.4); MONOCYTES # (AUTO) 0.54 x10^3/uL (0.2-0.8); MONOCYTES % (AUTO) 9 % (2-9); NEUTROPHILS # (AUTO) 1.99 x10^3/uL (1.8-6.8); NEUTROPHILS % (AUTO) 33 % (42-75); PLATELET COUNT 230 x10^3/uL (130-400); RED BLOOD COUNT 3.74 x10^6/uL (4.38-5.82); RED CELL DISTRIBUTION WIDTH 13.3 % (9.4-14.8)
[2018-06-03 04:45] LABS: ALANINE AMINOTRANSFERASE 22 U/L (12-78); ANION GAP 8 mmol/L (5-15); CALCIUM 8.2 mg/dL (8.5-10.1); CHLORIDE 110 mmol/L (98-107); CREATININE 0.61 mg/dL (0.7-1.3)
[2018-06-03 04:47] LABS: ALKALINE PHOSPHATASE 135 U/L (45-117); BILIRUBIN,TOTAL 0.2 mg/dL (0.2-1.0)
[2018-06-03 06:25] VITALS: BP 119/71
[2018-06-03] MEDS: METOPROLOL TARTRATE 25 MG TABLET PO SCH ×2 (06:26→18:23)
[2018-06-03 07:56] VITALS: BP 119/75
[2018-06-03] MEDS: GABAPENTIN 100 MG CAPSULE PO SCH ×3 (08:42→21:40)
[2018-06-03] MEDS: PHENYTOIN 100 MG CAPSULE PO SCH (08:43)
[2018-06-03] MEDS: SENNA/DOCUSATE TABLET PO SCH (08:43)
[2018-06-03] MEDS: SODIUM CHLORIDE FLUSH 10ML SYR IVF SCH ×2 (08:43→21:43)
[2018-06-03 15:52] VITALS: BP 114/71
[2018-06-03] MEDS: HEPARIN 25,000 UNITS/500ML PMX 500 ML IV PRN (18:22)
[2018-06-03 18:54] VITALS: BP 124/70
[2018-06-03] MEDS: ATORVASTATIN 40 MG TABLET PO SCH (21:40)
[2018-06-03] MEDS: NICOTINE 7 MG/24 HR PATCH.TD24 TD SCH (21:40)
[2018-06-04 03:37] VITALS: BP 103/66
[2018-06-04] MEDS: HEPARIN 5,000 UNITS/ML, 1ML IV PRN (05:13)
[2018-06-04 05:48] VITALS: BP 118/79
[2018-06-04] MEDS: METOPROLOL TARTRATE 25 MG TABLET PO SCH (05:52)
[2018-06-04 08:00] VITALS: BP 113/64
[2018-06-04 08:08] LABS: BASOPHILS # (AUTO) 0.06 x10^3/uL (0-0.1); BASOPHILS % (AUTO) 1 % (0-1); EOSINOPHILS # (AUTO) 0.17 x10^3/uL (0-0.4); EOSINOPHILS % (AUTO) 3 % (1-7); LYMPHOCYTES % (AUTO) 43 % (22-44); MD NO; MEAN CORPUSCULAR HEMOGLOBIN 33.2 pg (27.5-34.5); MEAN CORPUSCULAR VOLUME 100.5 fL (81-97); MEAN PLATELET VOLUME 8.6 fL (7.4-10.4); MONOCYTES # (AUTO) 0.53 x10^3/uL (0.2-0.8); MONOCYTES % (AUTO) 9 % (2-9); NEUTROPHILS # (AUTO) 2.58 x10^3/uL (1.8-6.8); NEUTROPHILS % (AUTO) 44 % (42-75); PLATELET COUNT 258 x10^3/uL (130-400); RED BLOOD COUNT 4.04 x10^6/uL (4.38-5.82); RED CELL DISTRIBUTION WIDTH 13.7 % (9.4-14.8)
[2018-06-04 08:16] LABS: ANION GAP 9 mmol/L (5-15); CALCIUM 8.5 mg/dL (8.5-10.1); CHLORIDE 110 mmol/L (98-107); CREATININE 0.72 mg/dL (0.7-1.3)
[2018-06-04] MEDS: SENNA/DOCUSATE TABLET PO SCH (09:00)
[2018-06-04] MEDS: SODIUM CHLORIDE FLUSH 10ML SYR IVF SCH (09:00)
[2018-06-04] MEDS: PHENYTOIN 100 MG CAPSULE PO SCH (09:31)
[2018-06-04] MEDS: GABAPENTIN 100 MG CAPSULE PO SCH (09:31)
[2018-06-04] MEDS: HEPARIN 25,000 UNITS/500ML PMX 500 ML IV PRN (11:03)
[2018-06-04 14:00] VITALS: BP 118/67
== END 2018-06-04 15:07 | disposition home or self-care (01) | DRG 921 ==
LOC: ED 16:10 → EDIP 18:40 → 3NE 20:07
PROVIDERS: ADMIT Hospitalist; ATTEND Hospitalist
DX: T81.31XA Disruption of external operation (surgical) wound, not elsewhere classified, initial encounter (principal); D53.9 Nutritional anemia, unspecified; E78.5 Hyperlipidemia, unspecified; F17.210 Nicotine dependence, cigarettes, uncomplicated; G40.909 Epilepsy, unspecified, not intractable, without status epilepticus; I70.212 Atherosclerosis of native arteries of extremities with intermittent claudication, left leg; G57.92 Unspecified mononeuropathy of left lower limb; Y83.8 Other surgical procedures as the cause of abnormal reaction of the patient, or of later complication, without mention of misadventure at the time of the procedure; Y92.89 Other specified places as the place of occurrence of the external cause; I25.10 Atherosclerotic heart disease of native coronary artery without angina pectoris; I25.2 Old myocardial infarction; Z66 Do not resuscitate; Z95.5 Presence of coronary angioplasty implant and graft; Z95.828 Presence of other vascular implants and grafts; Z79.82 Long term (current) use of aspirin
CPT/HCPCS: 36415; 80048; 80053; 80185; 82607; 82746; 85025; 85520; 85610; 85730; 93922; 93926; G0378; J1644

== ENCOUNTER 2018-06-16 10:10 | Inpatient (IN) | payer MEDICARE, MEDICAID ==
[~2018-06-16] VITALS: Ht 182.9 cm; Wt 83.3 kg
[~2018-06-16 10:10] MED LIST changes: -ASPI-621 PO; +ASPI81TA45 PO
[2018-06-16] MEDS ORDERED: CEFTRIAXONE PMX 1GM/50ML 50 ML ONE (10:45)
[2018-06-16] MEDS ORDERED: MORPHINE SULFATE 4 MG/ML, 1ML ONE (10:45)
[2018-06-16] MEDS ORDERED: ACETAMINOPHEN 500 MG TABLET ONE (10:45)
[2018-06-16] MEDS ORDERED: ACETAMINOPHEN 500 MG TABLET PO ONE (11:00)
[2018-06-16] MEDS ORDERED: MORPHINE SULFATE 4 MG/ML, 1ML IVPush PRN (11:00)
[2018-06-16] MEDS ORDERED: LIDOCAINE 1%, 10ML INFIL ONE (11:00)
[2018-06-16 11:32] LABS: MEAN CORPUSCULAR HEMOGLOBIN 34.5 pg (27.5-34.5); MEAN CORPUSCULAR HGB CONC 34.8 g/dL (33.2-36.2); MEAN CORPUSCULAR VOLUME 98.9 fL (81-97); MEAN PLATELET VOLUME 8.3 fL (7.4-10.4); PLATELET COUNT 210 x10^3/uL (130-400); RED BLOOD COUNT 3.97 x10^6/uL (4.38-5.82)
[2018-06-16 11:40] LABS: ALANINE AMINOTRANSFERASE 19 U/L (12-78); ALBUMIN 3.4 g/dL (3.4-5.0); ANION GAP 7 mmol/L (5-15); CALCIUM 8.1 mg/dL (8.5-10.1); CHLORIDE 103 mmol/L (98-107); CREATININE 1.26 mg/dL (0.7-1.3)
[2018-06-16 11:43] LABS: ALKALINE PHOSPHATASE 126 U/L (45-117); BILIRUBIN,TOTAL 0.6 mg/dL (0.2-1.0); TOTAL PROTEIN 7.5 g/dL (6.4-8.2)
[2018-06-16] MEDS ORDERED: CEFTRIAXONE PMX 1GM/50ML 50 ML IV ONE (12:00)
[2018-06-16] MEDS ORDERED: SODIUM CHLORIDE FLUSH 10ML SYR IVF ONE (12:00)
[2018-06-16] MEDS ORDERED: SODIUM CHLORIDE 0.9% 1,000ML IVBOLUS ONE (12:00)
[2018-06-16 12:13] LABS: MD YES
[2018-06-16] MEDS ORDERED: OMNIPAQUE 350 MG/ML, 100ML BOTTLE ONE (12:14)
[2018-06-16 12:28] LABS: <PLATELET ESTIMATE> ADEQUATE; <PLT MORPHOLOGY> NORMAL PLT MORPH; <RBC MORPHOLOGY> NORMAL; BAND#(MANUAL) 2.02 x10^3/uL; BANDS%(MANUAL) 8 % (0-7); LYMPH#(MANUAL) 1.52 x10^3/uL (1-3.4); LYMPHS% (MANUAL) 6 % (22-44); MONOS#(MANUAL) 1.01 x10^3/uL (0.3-2.7); MONOS% (MANUAL) 4 % (2-9); SEG#(MANUAL) 20.75 x10^3/uL (1.8-6.8); SEGS% (MANUAL) 82 % (42-75)
[2018-06-16] MEDS ORDERED: SODIUM CHLORIDE FLUSH 10ML SYR IVF PRN (13:00)
[2018-06-16 14:13] VITALS: BP 90/56
[2018-06-16] MEDS ORDERED: ONDANSETRON ODT 4 MG PO PRN (14:30)
[2018-06-16] MEDS ORDERED: VANCOMYCIN PER PHARMACY MC PRN (14:30)
[2018-06-16] MEDS ORDERED: POLYETHYLENE GLYCOL 17 GM PACKET PO PRN (14:30)
[2018-06-16] MEDS ORDERED: IBUPROFEN 600 MG TABLET PO PRN (14:30)
[2018-06-16] MEDS ORDERED: DOCUSATE 100 MG CAPSULE PO PRN (14:30)
[2018-06-16] MEDS ORDERED: VANCOMYCIN 1,600 MG in SODIUM CHLORIDE 0.9% 250 ML IV SCH (15:00)
[2018-06-16] MEDS ORDERED: PHARMACOKINETIC MONITORING MC PRN (15:00)
[2018-06-16] MEDS: SODIUM CHLORIDE 0.9% 1,000 ML IV SCH ×2 (15:19→20:05)
[2018-06-16] MEDS: GABAPENTIN 100 MG CAPSULE PO SCH ×2 (15:19→20:04)
[2018-06-16] MEDS: ENOXAPARIN 40 MG/0.4 ML SQ SCH (15:19)
[2018-06-16] MEDS: NICOTINE 7 MG/24 HR PATCH.TD24 TD SCH (15:20)
[2018-06-16 17:20] VITALS: BP 105/69
[2018-06-16] MEDS: METOPROLOL TARTRATE 25 MG TABLET PO SCH (17:21)
[2018-06-16] MEDS: ATORVASTATIN 40 MG TABLET PO SCH (20:04)
[2018-06-16] MEDS: HYDROcodone/APAP 5/325 TABLET PO PRN (20:13)
[2018-06-16 20:34] VITALS: BP 105/51
[2018-06-16] MEDS: ACETAMINOPHEN 325 MG TABLET PO PRN (23:12)
[2018-06-17 00:59] VITALS: BP 114/64
[2018-06-17 05:12] LABS: MEAN CORPUSCULAR HEMOGLOBIN 34.4 pg (27.5-34.5); MEAN CORPUSCULAR VOLUME 101.2 fL (81-97); MEAN PLATELET VOLUME 8.5 fL (7.4-10.4); PLATELET COUNT 185 x10^3/uL (130-400); RED BLOOD COUNT 3.77 x10^6/uL (4.38-5.82); RED CELL DISTRIBUTION WIDTH 13.2 % (9.4-14.8)
[2018-06-17 05:13] LABS: ANION GAP 8 mmol/L (5-15); CALCIUM 8.1 mg/dL (8.5-10.1); CHLORIDE 107 mmol/L (98-107)
[2018-06-17] MEDS: METOPROLOL TARTRATE 25 MG TABLET PO SCH ×2 (05:46→17:08)
[2018-06-17] MEDS: ASPIRIN 81 MG TABLET EC PO SCH (05:46)
[2018-06-17 05:48] LABS: MD YES
[2018-06-17] MEDS: SODIUM CHLORIDE 0.9% 1,000 ML IV SCH ×3 (05:48→14:10)
[2018-06-17 05:49] LABS: BAND#(MANUAL) 0.96 x10^3/uL; BANDS%(MANUAL) 5 % (0-7); LYMPHS% (MANUAL) 12 % (22-44); MONOS#(MANUAL) 0.58 x10^3/uL (0.3-2.7); MONOS% (MANUAL) 3 % (2-9); SEG#(MANUAL) 15.36 x10^3/uL (1.8-6.8); SEGS% (MANUAL) 80 % (42-75)
[2018-06-17 05:50] LABS: <PLATELET ESTIMATE> ADEQUATE; <PLT MORPHOLOGY> NORMAL PLT MORPH
[2018-06-17 07:48] VITALS: BP 106/65
[2018-06-17] MEDS: ACETAMINOPHEN 325 MG TABLET PO PRN (08:47)
[2018-06-17] MEDS: PHENYTOIN 100 MG CAPSULE PO SCH (08:47)
[2018-06-17] MEDS: CYANOCOBALAMIN 1,000 MCG TABLET PO SCH (08:47)
[2018-06-17] MEDS: CLOPIDOGREL 75 MG TABLET PO SCH (08:47)
[2018-06-17] MEDS: GABAPENTIN 100 MG CAPSULE PO SCH ×3 (08:47→20:08)
[2018-06-17] MEDS: HYDROcodone/APAP 5/325 TABLET PO PRN ×3 (08:47→20:28)
[2018-06-17] MEDS: CEFTRIAXONE PMX 1GM/50ML 50 ML IV SCH (09:42)
[2018-06-17 10:58] LABS: HCT (SEDRATE) 32.7 % (39.2-51.8)
[2018-06-17 12:57] VITALS: BP 100/64
[2018-06-17] MEDS: NICOTINE 7 MG/24 HR PATCH.TD24 TD SCH (14:09)
[2018-06-17] MEDS: ENOXAPARIN 40 MG/0.4 ML SQ SCH (14:09)
[2018-06-17 17:07] VITALS: BP 93/58
[2018-06-17] MEDS: VANCOMYCIN 1,600 MG in SODIUM CHLORIDE 0.9% 250 ML IV SCH (17:07)
[2018-06-17 20:05] VITALS: BP_SYST 83; BP_SYST 97; BP_DIAS 53; BP_DIAS 63
[2018-06-17] MEDS: ATORVASTATIN 40 MG TABLET PO SCH (20:08)
[2018-06-17 21:59] VITALS: BP 98/66
[2018-06-18 00:41] VITALS: BP 97/62
[2018-06-18] MEDS: HYDROcodone/APAP 5/325 TABLET PO PRN ×3 (02:54→22:35)
[2018-06-18] MEDS: SODIUM CHLORIDE 0.9% 1,000 ML IV SCH ×2 (02:57→11:13)
[2018-06-18 05:45] VITALS: BP 100/65
[2018-06-18] MEDS: METOPROLOL TARTRATE 25 MG TABLET PO SCH ×2 (05:47→17:31)
[2018-06-18] MEDS: ASPIRIN 81 MG TABLET EC PO SCH (05:47)
[2018-06-18 05:55] LABS: BASOPHILS # (AUTO) 0.03 x10^3/uL (0-0.1); BASOPHILS % (AUTO) 0 % (0-1); CHLORIDE 110 mmol/L (98-107); EOSINOPHILS # (AUTO) 0.17 x10^3/uL (0-0.4); EOSINOPHILS % (AUTO) 2 % (1-7); LYMPHOCYTES % (AUTO) 14 % (22-44); MD NO; MEAN CORPUSCULAR HEMOGLOBIN 34.4 pg (27.5-34.5); MEAN CORPUSCULAR HGB CONC 33.7 g/dL (33.2-36.2); MEAN CORPUSCULAR VOLUME 102.1 fL (81-97); MEAN PLATELET VOLUME 9.1 fL (7.4-10.4); MONOCYTES # (AUTO) 0.45 x10^3/uL (0.2-0.8); MONOCYTES % (AUTO) 4 % (2-9); NEUTROPHILS # (AUTO) 9.25 x10^3/uL (1.8-6.8); NEUTROPHILS % (AUTO) 81 % (42-75); PLATELET COUNT 171 x10^3/uL (130-400); RED BLOOD COUNT 3.21 x10^6/uL (4.38-5.82); RED CELL DISTRIBUTION WIDTH 13.3 % (9.4-14.8)
[2018-06-18 05:56] LABS: HEMOGLOBIN A1C 5.8 % (4.2-6.3)
[2018-06-18 06:02] LABS: ANION GAP 8 mmol/L (5-15); CREATININE 0.65 mg/dL (0.7-1.3)
[2018-06-18 06:57] VITALS: BP 101/66
[2018-06-18] MEDS: GABAPENTIN 100 MG CAPSULE PO SCH ×3 (07:19→19:43)
[2018-06-18] MEDS: CLOPIDOGREL 75 MG TABLET PO SCH (07:20)
[2018-06-18] MEDS: CYANOCOBALAMIN 1,000 MCG TABLET PO SCH (07:20)
[2018-06-18] MEDS: PHENYTOIN 100 MG CAPSULE PO SCH (07:20)
[2018-06-18] MEDS: CEFTRIAXONE PMX 1GM/50ML 50 ML IV SCH (10:05)
[2018-06-18] MEDS: VANCOMYCIN 1,600 MG in SODIUM CHLORIDE 0.9% 250 ML IV SCH (11:12)
[2018-06-18 12:58] VITALS: BP 111/81
[2018-06-18] MEDS: ENOXAPARIN 40 MG/0.4 ML SQ SCH (13:35)
[2018-06-18] MEDS: AMPICILLIN/SULBACTAM 3 GM in SODIUM CHLORIDE 0.9% 100 ML IV SCH ×2 (13:35→19:43)
[2018-06-18] MEDS: NICOTINE 7 MG/24 HR PATCH.TD24 TD SCH (13:35)
[2018-06-18 19:36] VITALS: BP 111/69
[2018-06-18] MEDS: ATORVASTATIN 40 MG TABLET PO SCH (19:43)
[2018-06-19 02:10] VITALS: BP 107/66
[2018-06-19] MEDS: AMPICILLIN/SULBACTAM 3 GM in SODIUM CHLORIDE 0.9% 100 ML IV SCH ×2 (02:10→10:14)
[2018-06-19 04:52] LABS: BASOPHILS # (AUTO) 0.02 x10^3/uL (0-0.1); BASOPHILS % (AUTO) 0 % (0-1); EOSINOPHILS # (AUTO) 0.25 x10^3/uL (0-0.4); EOSINOPHILS % (AUTO) 3 % (1-7); LYMPHOCYTES # (AUTO) 2.24 x10^3/uL (1-3.4); LYMPHOCYTES % (AUTO) 27 % (22-44); MD NO; MEAN CORPUSCULAR HEMOGLOBIN 33.8 pg (27.5-34.5); MEAN CORPUSCULAR HGB CONC 33.5 g/dL (33.2-36.2); MEAN CORPUSCULAR VOLUME 100.8 fL (81-97); MEAN PLATELET VOLUME 8.6 fL (7.4-10.4); MONOCYTES # (AUTO) 0.46 x10^3/uL (0.2-0.8); MONOCYTES % (AUTO) 6 % (2-9); NEUTROPHILS % (AUTO) 64 % (42-75); PLATELET COUNT 214 x10^3/uL (130-400); RED BLOOD COUNT 3.34 x10^6/uL (4.38-5.82); RED CELL DISTRIBUTION WIDTH 13.3 % (9.4-14.8)
[2018-06-19 04:53] LABS: ANION GAP 8 mmol/L (5-15); CALCIUM 8.1 mg/dL (8.5-10.1); CHLORIDE 111 mmol/L (98-107)
[2018-06-19 05:30] VITALS: BP 112/73
[2018-06-19] MEDS: ASPIRIN 81 MG TABLET EC PO SCH (05:31)
[2018-06-19] MEDS: METOPROLOL TARTRATE 25 MG TABLET PO SCH ×2 (05:31→19:53)
[2018-06-19 05:51] LABS: HCT (SEDRATE) 33.7 % (39.2-51.8)
[2018-06-19 07:30] VITALS: BP 115/66
[2018-06-19] MEDS: CYANOCOBALAMIN 1,000 MCG TABLET PO SCH (10:14)
[2018-06-19] MEDS: GABAPENTIN 100 MG CAPSULE PO SCH ×3 (10:14→19:52)
[2018-06-19] MEDS: PHENYTOIN 100 MG CAPSULE PO SCH (10:15)
[2018-06-19] MEDS: CLOPIDOGREL 75 MG TABLET PO SCH (10:15)
[2018-06-19] MEDS: HYDROcodone/APAP 5/325 TABLET PO PRN ×2 (10:28→21:20)
[2018-06-19 13:59] VITALS: BP 122/64
[2018-06-19] MEDS: ENOXAPARIN 40 MG/0.4 ML SQ SCH (14:30)
[2018-06-19] MEDS: CEFAZOLIN PMX 2GM/50ML 50 ML IVPB SCH ×2 (14:46→22:05)
[2018-06-19] MEDS: NICOTINE 7 MG/24 HR PATCH.TD24 TD SCH (14:47)
[2018-06-19] MEDS ORDERED: MIDAZOLAM 1 MG/ML, 2ML ONE ×2 (17:43→17:52)
[2018-06-19] MEDS ORDERED: FENTANYL PF 100 MCG/2ML ONE ×2 (17:43→17:54)
[2018-06-19] MEDS ORDERED: BUPIVACAINE/PF-EPI 0.5% 1:200K INFIL ONE (17:55)
[2018-06-19] MEDS ORDERED: OXYcodone 5 MG/5 ML ORAL.SOL UDC ONE (18:21)
[2018-06-19] MEDS ORDERED: ACETAMINOPHEN 325 MG TABLET PO PRN (18:30)
[2018-06-19] MEDS ORDERED: ONDANSETRON 2MG/ML, 2ML IV PRN (18:30)
[2018-06-19] MEDS ORDERED: MIDAZOLAM 1 MG/ML, 2ML IV PRN (18:30)
[2018-06-19] MEDS ORDERED: hydrALAzine 20 MG/ML, 1ML IV PRN (18:30)
[2018-06-19] MEDS ORDERED: KETOROLAC 30 MG/1 ML IV PRN (18:30)
[2018-06-19] MEDS ORDERED: OXYcodone 5 MG/5 ML ORAL.SOL UDC PO PRN (18:30)
[2018-06-19] MEDS ORDERED: ALBUTEROL/IPRATROPIUM 2.5MG/0.5MG, 3 ML NPPB PRN (18:30)
[2018-06-19 18:46] VITALS: BP 121/77
[2018-06-19] MEDS: ATORVASTATIN 40 MG TABLET PO SCH (19:52)
[2018-06-19] MEDS: MORPHINE SULFATE 4 MG/ML, 1ML IVPush PRN (22:14)
[2018-06-20] VITALS: BP 125/64
[2018-06-20] MEDS: HYDROcodone/APAP 5/325 TABLET PO PRN ×3 (03:27→14:35)
[2018-06-20] MEDS: MORPHINE SULFATE 4 MG/ML, 1ML IVPush PRN ×2 (03:32→06:09)
[2018-06-20 03:42] VITALS: BP 107/72
[2018-06-20 04:34] LABS: BASOPHILS # (AUTO) 0.03 x10^3/uL (0-0.1); BASOPHILS % (AUTO) 1 % (0-1); EOSINOPHILS # (AUTO) 0.23 x10^3/uL (0-0.4); EOSINOPHILS % (AUTO) 4 % (1-7); LYMPHOCYTES # (AUTO) 2.16 x10^3/uL (1-3.4); LYMPHOCYTES % (AUTO) 33 % (22-44); MD NO; MEAN CORPUSCULAR HEMOGLOBIN 33.6 pg (27.5-34.5); MEAN CORPUSCULAR HGB CONC 33.5 g/dL (33.2-36.2); MEAN CORPUSCULAR VOLUME 100.5 fL (81-97); MEAN PLATELET VOLUME 8.4 fL (7.4-10.4); MONOCYTES # (AUTO) 0.37 x10^3/uL (0.2-0.8); MONOCYTES % (AUTO) 6 % (2-9); NEUTROPHILS # (AUTO) 3.75 x10^3/uL (1.8-6.8); NEUTROPHILS % (AUTO) 57 % (42-75); PLATELET COUNT 241 x10^3/uL (130-400); RED BLOOD COUNT 3.42 x10^6/uL (4.38-5.82); RED CELL DISTRIBUTION WIDTH 13.1 % (9.4-14.8)
[2018-06-20 04:46] LABS: ALBUMIN 2.4 g/dL (3.4-5.0); ANION GAP 7 mmol/L (5-15); CALCIUM 8.1 mg/dL (8.5-10.1); CHLORIDE 110 mmol/L (98-107); CREATININE 0.67 mg/dL (0.7-1.3)
[2018-06-20] MEDS: ASPIRIN 81 MG TABLET EC PO SCH (06:08)
[2018-06-20] MEDS: METOPROLOL TARTRATE 25 MG TABLET PO SCH ×2 (06:08→18:01)
[2018-06-20] MEDS: CEFAZOLIN PMX 2GM/50ML 50 ML IVPB SCH ×3 (06:09→21:46)
[2018-06-20 07:50] VITALS: BP 109/73
[2018-06-20] MEDS ORDERED: MORPHINE SULFATE 4 MG/ML, 1ML IVPush PRN (08:30)
[2018-06-20] MEDS: GABAPENTIN 100 MG CAPSULE PO SCH ×3 (09:57→20:00)
[2018-06-20] MEDS: PHENYTOIN 100 MG CAPSULE PO SCH (09:57)
[2018-06-20] MEDS: CLOPIDOGREL 75 MG TABLET PO SCH (09:57)
[2018-06-20] MEDS: CYANOCOBALAMIN 1,000 MCG TABLET PO SCH (09:57)
[2018-06-20 13:27] VITALS: BP 100/61
[2018-06-20] MEDS: NICOTINE 7 MG/24 HR PATCH.TD24 TD SCH (14:35)
[2018-06-20] MEDS: ENOXAPARIN 40 MG/0.4 ML SQ SCH (14:36)
[2018-06-20 17:57] VITALS: BP 102/60
[2018-06-20] MEDS: ATORVASTATIN 40 MG TABLET PO SCH (20:00)
[2018-06-20 20:27] VITALS: BP 119/67
[2018-06-21] VITALS (10 sets, daily range): BP systolic 98–159; BP diastolic 60–83
[2018-06-21] MEDS ORDERED: NALOXONE 0.4 MG/ML, 1ML ONE
[2018-06-21] MEDS: ASPIRIN 81 MG TABLET EC PO SCH (05:50)
[2018-06-21] MEDS: METOPROLOL TARTRATE 25 MG TABLET PO SCH ×2 (05:50→17:24)
[2018-06-21] MEDS: CEFAZOLIN PMX 2GM/50ML 50 ML IVPB SCH ×2 (05:50→16:04)
[2018-06-21] MEDS: GABAPENTIN 100 MG CAPSULE PO SCH ×3 (08:22→22:00)
[2018-06-21] MEDS: CLOPIDOGREL 75 MG TABLET PO SCH (08:23)
[2018-06-21] MEDS: CYANOCOBALAMIN 1,000 MCG TABLET PO SCH (08:23)
[2018-06-21] MEDS: PHENYTOIN 100 MG CAPSULE PO SCH (08:23)
[2018-06-21] MEDS ORDERED: NALOXONE 1 MG/ML, 2ML IVPush PRN (09:30)
[2018-06-21 11:26] LABS: AMPHETAMINE SCREEN, URINE Negative (Negative); BARBITURATE SCREEN, URINE Negative (Negative)
[2018-06-21 11:27] LABS: BENZODIAZEPINE SCREEN, URINE Negative (Negative); CANNABINOID SCREEN, URINE Negative (Negative); COCAINE SCREEN, URINE Negative (Negative); METHADONE SCREEN, URINE Negative (Negative); OPIATE SCREEN, URINE Positive (Negative)
[2018-06-21] MEDS ORDERED: LORazepam 2 MG/ML, 1ML ONE ×2 (11:35→19:10)
[2018-06-21] MEDS ORDERED: LORazepam 2 MG/ML, 1ML IVPush ONE (12:00)
[2018-06-21] MEDS: ENOXAPARIN 40 MG/0.4 ML SQ SCH (14:30)
[2018-06-21] MEDS: NICOTINE 7 MG/24 HR PATCH.TD24 TD SCH (16:04)
[2018-06-21] MEDS ORDERED: LORazepam 2 MG/ML, 1ML IVPush PRN (20:00)
[2018-06-21] MEDS: LEVETIRACETAM 1,000 MG in SODIUM CHLORIDE 0.9% 100 ML IV SCH (20:33)
[2018-06-21] MEDS: ATORVASTATIN 40 MG TABLET PO SCH (22:00)
[2018-06-22] MEDS: CEFAZOLIN PMX 2GM/50ML 50 ML IVPB SCH ×3 (00:05→17:42)
[2018-06-22 00:56] VITALS: BP 93/60
[2018-06-22 05:48] VITALS: BP 92/59
[2018-06-22] MEDS: ASPIRIN 81 MG TABLET EC PO SCH (05:54)
[2018-06-22] MEDS: METOPROLOL TARTRATE 25 MG TABLET PO SCH ×2 (05:54→17:43)
[2018-06-22 06:22] LABS: BASOPHILS # (AUTO) 0.03 x10^3/uL (0-0.1); BASOPHILS % (AUTO) 0 % (0-1); EOSINOPHILS # (AUTO) 0.15 x10^3/uL (0-0.4); EOSINOPHILS % (AUTO) 2 % (1-7); LYMPHOCYTES # (AUTO) 2.28 x10^3/uL (1-3.4); LYMPHOCYTES % (AUTO) 29 % (22-44); MD NO; MEAN CORPUSCULAR HEMOGLOBIN 33.9 pg (27.5-34.5); MEAN CORPUSCULAR HGB CONC 34.1 g/dL (33.2-36.2); MEAN CORPUSCULAR VOLUME 99.6 fL (81-97); MEAN PLATELET VOLUME 7.4 fL (7.4-10.4); MONOCYTES # (AUTO) 0.36 x10^3/uL (0.2-0.8); MONOCYTES % (AUTO) 5 % (2-9); NEUTROPHILS # (AUTO) 4.97 x10^3/uL (1.8-6.8); NEUTROPHILS % (AUTO) 64 % (42-75); PLATELET COUNT 335 x10^3/uL (130-400); RED BLOOD COUNT 3.64 x10^6/uL (4.38-5.82); RED CELL DISTRIBUTION WIDTH 13.1 % (9.4-14.8)
[2018-06-22 06:32] LABS: ALBUMIN 2.9 g/dL (3.4-5.0); ANION GAP 8 mmol/L (5-15); CALCIUM 8.2 mg/dL (8.5-10.1); CHLORIDE 110 mmol/L (98-107); CREATININE 0.79 mg/dL (0.7-1.3)
[2018-06-22 08:22] VITALS: BP 96/65
[2018-06-22] MEDS: LEVETIRACETAM 1,000 MG in SODIUM CHLORIDE 0.9% 100 ML IV SCH ×2 (08:26→20:16)
[2018-06-22] MEDS: GABAPENTIN 100 MG CAPSULE PO SCH ×3 (08:26→21:57)
[2018-06-22] MEDS: CLOPIDOGREL 75 MG TABLET PO SCH (08:26)
[2018-06-22] MEDS: PHENYTOIN 100 MG CAPSULE PO SCH (08:26)
[2018-06-22] MEDS: CYANOCOBALAMIN 1,000 MCG TABLET PO SCH (08:26)
[2018-06-22 13:57] VITALS: BP 97/58
[2018-06-22] MEDS: ENOXAPARIN 40 MG/0.4 ML SQ SCH (16:00)
[2018-06-22] MEDS: NICOTINE 7 MG/24 HR PATCH.TD24 TD SCH (17:42)
[2018-06-22 19:33] VITALS: BP 96/42
[2018-06-22] MEDS: ATORVASTATIN 40 MG TABLET PO SCH (21:57)
[2018-06-23 00:31] VITALS: BP 97/61
[2018-06-23] MEDS: CEFAZOLIN PMX 2GM/50ML 50 ML IVPB SCH ×3 (01:12→16:12)
[2018-06-23 05:18] VITALS: BP 97/58
[2018-06-23] MEDS: ASPIRIN 81 MG TABLET EC PO SCH (05:19)
[2018-06-23] MEDS: METOPROLOL TARTRATE 25 MG TABLET PO SCH ×2 (05:20→17:32)
[2018-06-23 06:50] VITALS: BP 102/62
[2018-06-23] MEDS: PHENYTOIN 100 MG CAPSULE PO SCH (07:59)
[2018-06-23] MEDS: LEVETIRACETAM 1,000 MG in SODIUM CHLORIDE 0.9% 100 ML IV SCH ×2 (07:59→21:07)
[2018-06-23] MEDS: CYANOCOBALAMIN 1,000 MCG TABLET PO SCH (08:00)
[2018-06-23] MEDS: GABAPENTIN 100 MG CAPSULE PO SCH ×3 (08:00→21:07)
[2018-06-23] MEDS: CLOPIDOGREL 75 MG TABLET PO SCH (08:00)
[2018-06-23 12:46] VITALS: BP 97/60
[2018-06-23] MEDS: ENOXAPARIN 40 MG/0.4 ML SQ SCH (16:00)
[2018-06-23] MEDS: NICOTINE 7 MG/24 HR PATCH.TD24 TD SCH (16:12)
[2018-06-23 17:34] VITALS: BP 114/68
[2018-06-23 20:36] VITALS: BP 110/63
[2018-06-23] MEDS: ATORVASTATIN 40 MG TABLET PO SCH (21:07)
[2018-06-24] MEDS: CEFAZOLIN PMX 2GM/50ML 50 ML IVPB SCH ×3 (00:59→17:25)
[2018-06-24 02:04] VITALS: BP 93/67
[2018-06-24 05:54] LABS: BASOPHILS # (AUTO) 0.04 x10^3/uL (0-0.1); BASOPHILS % (AUTO) 1 % (0-1); EOSINOPHILS # (AUTO) 0.26 x10^3/uL (0-0.4); EOSINOPHILS % (AUTO) 3 % (1-7); LYMPHOCYTES # (AUTO) 2.78 x10^3/uL (1-3.4); LYMPHOCYTES % (AUTO) 35 % (22-44); MD NO; MEAN CORPUSCULAR HEMOGLOBIN 33.5 pg (27.5-34.5); MEAN CORPUSCULAR HGB CONC 33.6 g/dL (33.2-36.2); MEAN CORPUSCULAR VOLUME 99.5 fL (81-97); MEAN PLATELET VOLUME 7.9 fL (7.4-10.4); MONOCYTES # (AUTO) 0.49 x10^3/uL (0.2-0.8); MONOCYTES % (AUTO) 6 % (2-9); NEUTROPHILS # (AUTO) 4.31 x10^3/uL (1.8-6.8); NEUTROPHILS % (AUTO) 55 % (42-75); PLATELET COUNT 368 x10^3/uL (130-400); RED BLOOD COUNT 3.73 x10^6/uL (4.38-5.82); RED CELL DISTRIBUTION WIDTH 13.2 % (9.4-14.8)
[2018-06-24 06:02] VITALS: BP 99/65
[2018-06-24 06:02] LABS: ALBUMIN 2.9 g/dL (3.4-5.0); ANION GAP 9 mmol/L (5-15); CALCIUM 8.6 mg/dL (8.5-10.1); CHLORIDE 109 mmol/L (98-107); CREATININE 0.81 mg/dL (0.7-1.3)
[2018-06-24] MEDS: ASPIRIN 81 MG TABLET EC PO SCH (06:05)
[2018-06-24] MEDS: METOPROLOL TARTRATE 25 MG TABLET PO SCH ×2 (06:06→17:25)
[2018-06-24 07:26] VITALS: BP 101/63
[2018-06-24] MEDS: CLOPIDOGREL 75 MG TABLET PO SCH (09:51)
[2018-06-24] MEDS: LEVETIRACETAM 1,000 MG in SODIUM CHLORIDE 0.9% 100 ML IV SCH ×2 (09:51→20:54)
[2018-06-24] MEDS: CYANOCOBALAMIN 1,000 MCG TABLET PO SCH (09:52)
[2018-06-24] MEDS: PHENYTOIN 100 MG CAPSULE PO SCH (09:52)
[2018-06-24] MEDS: GABAPENTIN 100 MG CAPSULE PO SCH ×3 (09:53→20:03)
[2018-06-24 13:24] VITALS: BP 100/64
[2018-06-24] MEDS: NICOTINE 7 MG/24 HR PATCH.TD24 TD SCH (16:11)
[2018-06-24] MEDS: ENOXAPARIN 40 MG/0.4 ML SQ SCH (16:12)
[2018-06-24 19:34] VITALS: BP 101/68
[2018-06-24] MEDS: ATORVASTATIN 40 MG TABLET PO SCH (20:03)
[2018-06-25] MEDS: CEFAZOLIN PMX 2GM/50ML 50 ML IVPB SCH ×2 (01:03→10:35)
[2018-06-25 02:30] VITALS: BP 98/60
[2018-06-25] MEDS: METOPROLOL TARTRATE 25 MG TABLET PO SCH (05:25)
[2018-06-25] MEDS: ASPIRIN 81 MG TABLET EC PO SCH (05:25)
[2018-06-25 09:07] VITALS: BP 95/59
[2018-06-25] MEDS: GABAPENTIN 100 MG CAPSULE PO SCH (09:51)
[2018-06-25] MEDS: LEVETIRACETAM 1,000 MG in SODIUM CHLORIDE 0.9% 100 ML IV SCH (09:51)
[2018-06-25] MEDS: CLOPIDOGREL 75 MG TABLET PO SCH (09:52)
[2018-06-25] MEDS: PHENYTOIN 100 MG CAPSULE PO SCH (09:52)
[2018-06-25] MEDS: CYANOCOBALAMIN 1,000 MCG TABLET PO SCH (09:52)
[2018-06-25] MEDS ORDERED: CEFA2PIG7 IV (11:30)
[2018-06-25] MEDS ORDERED: LEVE100020 PO (11:30)
[2018-06-25] MEDS ORDERED: CYAN10005 PO (11:30)
[2018-06-25 13:52] VITALS: BP 95/61
== END 2018-06-25 17:43 | DRG 853 ==
LOC: ED 10:25 → EDIP 12:44 → 3NW 13:43 → 4WST 06-21 12:16
PROVIDERS: ADMIT Hospitalist; ATTEND Hospitalist
PROC: 0Y960ZZ Drainage of Left Inguinal Region, Open Approach (ICD-10-PCS; 2018-06-16)
PROC: 0J9C0ZZ Drainage of Pelvic Region Subcutaneous Tissue and Fascia, Open Approach (ICD-10-PCS; principal; 2018-06-19 17:00)
DX: A41.9 Sepsis, unspecified organism (principal); E43 Unspecified severe protein-calorie malnutrition; L03.116 Cellulitis of left lower limb; L02.214 Cutaneous abscess of groin; L02.416 Cutaneous abscess of left lower limb; G93.40 Encephalopathy, unspecified; I25.10 Atherosclerotic heart disease of native coronary artery without angina pectoris; G62.9 Polyneuropathy, unspecified; G40.909 Epilepsy, unspecified, not intractable, without status epilepticus; I70.302 Unspecified atherosclerosis of unspecified type of bypass graft(s) of the extremities, left leg; D53.9 Nutritional anemia, unspecified; Z66 Do not resuscitate; E53.8 Deficiency of other specified B group vitamins; F17.210 Nicotine dependence, cigarettes, uncomplicated; X58.XXXA Exposure to other specified factors, initial encounter; B95.62 Methicillin resistant Staphylococcus aureus infection as the cause of diseases classified elsewhere; S00.03XA Contusion of scalp, initial encounter; Z59.0 Homelessness; I25.2 Old myocardial infarction; Z95.828 Presence of other vascular implants and grafts; Z68.24 Body mass index [BMI] 24.0-24.9, adult; Z79.899 Other long term (current) drug therapy; Z79.1 Long term (current) use of non-steroidal anti-inflammatories (NSAID); Z79.2 Long term (current) use of antibiotics
CPT/HCPCS: 36415; 70450; 72193; 80048; 80053; 80307; 82040; 82962; 83036; 83605; 83735; 84100; 84145; 85025; 85651; 86140; 87040; 87070; 87075; 87077; 87186; 87205; 95819; 99285; G0378; J0295; J0690; J0696; J1650; J1953; J2250; J2310; J3010; J3370; Q9967; J2060; J7030; J7050

== ENCOUNTER 2019-06-30 19:31 | Emergency (ER) | payer MEDICARE, MEDICAID ==
[~2019-06-30] VITALS: Ht 180.3 cm; Wt 85.8 kg
[~2019-06-30 19:31] MED LIST changes: +CEFA2PIG7 IV; +CYAN-27 PO; +LEVE100020 PO
[2019-06-30 19:39] VITALS: BP 127/78
[2019-06-30] MEDS ORDERED: KETOROLAC 30 MG/1 ML ONE (19:58)
[2019-06-30] MEDS ORDERED: KETOROLAC 30 MG/1 ML IM ONE (20:00)
--- NOTE | 2019-06-30 20:10 | NUR ---
MEDS ADMIN PER MAR
--- NOTE | 2019-06-30 21:10 | NUR ---
DORSAL AND POSTERIOR TIBIAL PULSES HEARD WITH DOPPLER ON BILAT FEET.
== END 2019-06-30 21:26 | disposition home or self-care (01) ==
LOC: ED 21:20
DX: M79.672 Pain in left foot (principal); M79.671 Pain in right foot; M94.0 Chondrocostal junction syndrome [Tietze]; I25.2 Old myocardial infarction; G40.909 Epilepsy, unspecified, not intractable, without status epilepticus; I25.10 Atherosclerotic heart disease of native coronary artery without angina pectoris; F17.200 Nicotine dependence, unspecified, uncomplicated
CPT/HCPCS: 71046; 82962; 96372; 99283; J1885